=== PATIENT | male | born 1960 | race Caucasian/White ===

== ENCOUNTER 2017-03-12 12:20 | Emergency (ER) | payer BC ==
[~2017-03-12] VITALS: Ht 182.9 cm; Wt 100.0 kg
[2017-03-12 12:33] VITALS: TEMP 36.9; Ht 182.9 cm; Wt 100.0 kg
[2017-03-12] MEDS ORDERED: SODIUM CHLORIDE 0.9% 1000ML 1,000 ML IV STA (12:57)
[2017-03-12] MEDS ORDERED: FAMOTIDINE 20MG/102 ML D5W IV STA (12:57)
[2017-03-12] MEDS ORDERED: AMLO-114 PO (12:58)
[2017-03-12] MEDS ORDERED: ZNTT/150 PO (12:59)
[2017-03-12] MEDS ORDERED: BISM262S7 PO (13:00)
[2017-03-12 13:22] LABS: BASO % 0.3 %; BASO ABS # 0.03 K/uL (0-0.2); COMPLETE YES; EOS % 0.3 %; HEMATOCRIT 45.4 % (42-52); IG% 0.2 %; LYMPH % 18.2 %; LYMPH ABS # 1.68 K/uL (1.2-3.4); MEAN CELL VOLUME 85.7 fL (80-100); MEAN CORPUSCULAR HEMOGLOBIN 29.1 pg (25-34); MEAN CORPUSCULAR HGB CONC 33.9 g/dl (32-36); MONO % 8.5 %; NEUT % 72.5 %; PLATELET COUNT 271 K/uL (130-400); WHITE BLOOD COUNT 9.25 K/uL (4.8-10.8)
[2017-03-12 13:26] LABS: URINE APPEARANCE CLEAR (CLEAR); URINE BILIRUBIN NEG (NEG); URINE COLOR YELLOW; URINE NITRITE NEG (NEG); URINE SPECIFIC GRAVITY 1.005 (1.000-1.030); UROBILINOGEN NEG (NEG)
[2017-03-12 13:28] LABS: MANUAL MICROSCOPIC REQUIRED? NO; REVIEW REQ? NO
[2017-03-12 13:35] LABS: ALT/SGPT 301 U/L (12-78); AST/SGOT 338 U/L (15-37); BLOOD UREA NITROGEN 10 mg/dl (7-18); BUN/CREATININE RATIO 10.7 (10-20); CALCIUM 8.5 mg/dl (8.5-10.1); CARBON DIOXIDE 29 mmol/L (21-32); CHLORIDE 105 mmol/L (98-107); GLUCOSE 102 mg/dl (70-99); POTASSIUM 4.1 mmol/L (3.5-5.1); SODIUM 139 mmol/L (136-145)
[2017-03-12 13:40] LABS: ALB/GLOB RATIO 1.1 (0.9-2); ALKALINE PHOSPHATASE 77 U/L (45-117); CKMB/CK RATIO 1.2 (0-3.0)
--- NOTE | 2017-03-12 14:26 | DIAGNOSTIC IMAGING REPORT ---
ABDOMEN 2VIEW W/PA CHEST RTN CLINICAL HISTORY: 56 years-old Male presenting with EPIGASTRIC PAIN AND BLOATING. TECHNIQUE: PA view of the chest and supine and upright views of the abdomen were obtained. COMPARISON: None. FINDINGS: Cardiomediastinal silhouette normal. Lungs and pleural spaces clear. Moderate stool burden in the right colon. Nonobstructive bowel gas pattern. No evidence of free intraperitoneal gas, pneumatosis, or portal venous gas. No calcifications project over the kidneys or ureters allowing for the presence of stool and gas. Multiple pelvic phleboliths noted. Osseous structures normal. IMPRESSION: 1. No acute cardiopulmonary disease. No radiographic evidence of acute intra-abdominal pathology. Electronically signed by: Kenny Schultz M.D. 03/12/2017 2:25 PM Dictated Date/Time: 03/12/2017 2:22 PM
[2017-03-12] MEDS ORDERED: MoRPHine SULFATE 4 MG/ML 1 ML CARP\\VIAL IV STA (14:35)
[2017-03-12] MEDS ORDERED: ONDANSETRON INJ 2 MG/ML 2 ML VIAL IV STA (14:35)
--- NOTE | 2017-03-12 15:48 | DIAGNOSTIC IMAGING REPORT ---
GALLBLADDER-ABD LIMITED CLINICAL HISTORY: 56 years-old Male presenting with UPPER ABD PAIN . TECHNIQUE: Real-time grayscale and limited color Doppler ultrasound imaging of the abdomen limited to the right upper quadrant was performed. COMPARISON: None. FINDINGS: Pancreas: Mildly heterogeneous pancreatic parenchyma. Liver: Normal echogenicity and echotexture. No sonographic evidence of hepatic mass. Main portal vein patent with normal directional flow. Biliary: No intrahepatic biliary ductal dilatation. Common bile duct measures up to 8-10 mm in diameter. Gallbladder: Gallstones fill the gallbladder. This largely obscures the gallbladder lumen, limiting evaluation. No convincing evidence of wall thickening or pericholecystic fluid or inflammatory change. The gallbladder is nondistended. Equivocal sonographic Christopher sign. Right kidney: Anechoic lesion at the upper pole of the right kidney measuring 1.9 cm consistent with simple cyst. No hydronephrosis. Ascites: None. IMPRESSION: 1. Cholelithiasis with mild extrahepatic biliary ductal dilatation. No convincing evidence of cholecystitis. If there is continuing clinical concern for cholecystitis, nuclear medicine hepatobiliary scan could be obtained. 2. Mildly heterogeneous pancreatic parenchyma. Correlate with lipase to exclude pancreatitis. 3. 4. 5. Electronically signed by: Kenny Schultz M.D. 6. 03/12/2017 3:47 PM 7. 8. Dictated Date/Time: 03/12/2017 3:42 PM
--- NOTE | 2017-03-12 16:13 | EMERGENCY ROOM VISIT NOTE ---
History First contact with patient: 12:43 Chief Complaint: ABDOMINAL PAIN Stated Complaint: UPSET STOMACH/ACID? Nursing Triage Summary: Pt c/o bilateral upper abdominal pain that has been constant for a couple hours. States stomach feels irritated "like raw gut". Denies n/v/d. States he "feels full". Similar episode yesterday, but it went away. Went to urgent care first. "I feel like I need to burp". Ranitidine taken. Pepto Bismal taken. Drank water and ate toast. History of Present Illness Patient is a 56-year-old white male who presents to emergency department complaining by his for evaluation of upper abdominal discomfort. He states that his symptoms started last evening around 9:00. He admits that he ate poorly yesterday, had a lot of coffee, and spacey/septic foods including pizza, hot peppers and beer. He thought that he was experiencing some indigestion last night. He states that he had some bilateral upper abdominal discomfort, bloating and indigestion. It lasted for about 20 minutes then went away. He woke up with some heartburn symptoms overnight, and drink some water which helped. This morning, prior to eating, the upper abdominal discomfort returned. He states he had several waves of the discomfort. He tried taking Zantac and Pepto-Bismol. He ate plain toast. At the present time his symptoms are improving. He states that it feels like the "lining of his stomach is irritated." He denies feeling nauseous, has not vomited, reports a normal bowel movement about 2 hours ago. There has been no melena or hematochezia. He has had symptoms similar to this in the past, which have been treated with prescription antacids. He has had an EGD in the past. He feels a little bit bloated and feels like he needs to burp. He denies a sharp stabbing pain. He rates his discomfort a 4/10 presently. They went to an urgent care center first and were directed to the emergency department. He denies any upper chest pain, palpitations or shortness of breath. No radiation of the pain through to his back. Review of Systems Review of systems as per HPI. All other systems reviewed were negative. 10 systems reviewed. Past Medical/Surgical History Medical Problems: (1) Hypertension (2) Prostate cancer Surgical Problems: (1) History of prostatectomy The patient has no old records at our facility for review. Supple mental sheet was filled out by the patient's , and was reviewed. Social History Smoking Status: Never Smoker Alcohol Use: occasionally Housing Status: lives with significant other Occupation Status: employed Current/Historical Medications Scheduled Amlodipine (Norvasc), 10 MG PO DAILY Ranitidine (Zantac), 300 MG PO DAILY Scheduled PRN Bismuth Subsalicylate (Pepto-Bismol), 15 ML PO BID PRN for Diarrhea Hydrocodone/Acetaminophen 5MG/325MG ([place] 5MG/325MG), 1-2 TABLETS PO Q4 PRN for Pain Ondasetron Odt (Zofran Odt), 4 MG SL Q6H PRN for Nausea or Vomiting Allergies Uncoded Allergies: YELLOW DYE #5 (Allergy, Intermediate, hives, 03/12/17) Physical Exam Vital Signs Date Time Temp Pulse Resp B/P (MAP) Pulse Ox O2 Delivery O2 Flow Rate FiO2 03/12/17 16:30 80 16 140/97 96 03/12/17 14:15 72 17 140/97 98 Room Air 03/12/17 13:38 71 16 167/111 98 Room Air 03/12/17 12:33 36.9 71 18 169/109 98 Room Air Physical Exam CONSTITUTIONAL: Patient is a well-appearing 56-year-old white male who is awake and alert and in no acute distress. EYES: Pupils equal, round, reactive to light and accommodation. EOMs intact without nystagmus. Sclera are anicteric. ENT: Tympanic membranes intact, with normal landmarks. External canals are clear. Oral and nasopharynx are clear. Mucous membranes are moist, no lesions , tongue and gums appear normal. CARDIOVASCULAR: Regular rate and rhythm, with normal S1 and S2, no murmur or gallop or rub is heard. No carotid bruits auscultated. No JVD. Peripheral pulses easily palpable. RESPIRATORY: Breath sounds equal and clear to auscultation without wheezes, rales, or rhonchi heard. Full and equal chest expansion without accessory muscle use or retractions. ABDOMEN: Bowel sounds are present. Abdomen is soft, nondistended, nontender to percussion throughout. Mild upper abdominal tenderness. No guarding, rebound or rigidity. No pulsatile masses. No organomegaly appreciated. Negative Christopher' s sign. INTEGUMENTARY: No lesions or rash, normal skin turgor. LYMPH: No lymphadenopathy. Medical Decision & Procedures ER Provider Diagnostic Interpretation: ABDOMEN 2VIEW W/PA CHEST RTN CLINICAL HISTORY: 56 years-old Male presenting with EPIGASTRIC PAIN AND BLOATING. TECHNIQUE: PA view of the chest and supine and upright views of the abdomen were obtained. COMPARISON: None. FINDINGS: Cardiomediastinal silhouette normal. Lungs and pleural spaces clear. Moderate stool burden in the right colon. Nonobstructive bowel gas pattern. No evidence of free intraperitoneal gas, pneumatosis, or portal venous gas. No calcifications project over the kidneys or ureters allowing for the presence of stool and gas. Multiple pelvic phleboliths noted. Osseous structures normal. IMPRESSION: 1. No acute cardiopulmonary disease. No radiographic evidence of acute intra-abdominal pathology. GALLBLADDER-ABD LIMITED CLINICAL HISTORY: 56 years-old Male presenting with UPPER ABD PAIN . TECHNIQUE: Real-time grayscale and limited color Doppler ultrasound imaging of the abdomen limited to the right upper quadrant was performed. COMPARISON: None. FINDINGS: Pancreas: Mildly heterogeneous pancreatic parenchyma. Liver: Normal echogenicity and echotexture. No sonographic evidence of hepatic mass. Main portal vein patent with normal directional flow. Biliary: No intrahepatic biliary ductal dilatation. Common bile duct measures up to 8-10 mm in diameter. Gallbladder: Gallstones fill the gallbladder. This largely obscures the gallbladder lumen, limiting evaluation. No convincing evidence of wall thickening or pericholecystic fluid or inflammatory change. The gallbladder is nondistended. Equivocal sonographic Christopher sign. Right kidney: Anechoic lesion at the upper pole of the right kidney measuring 1.9 cm consistent with simple cyst. No hydronephrosis. Ascites: None. IMPRESSION: 1. Cholelithiasis with mild extrahepatic biliary ductal dilatation. No convincing evidence of cholecystitis. If there is continuing clinical concern for cholecystitis, nuclear medicine hepatobiliary scan could be obtained. 2. Mildly heterogeneous pancreatic parenchyma. Correlate with lipase to exclude pancreatitis. Laboratory Results 03/12/17 13:07 Red Blood Count 5.30, Mean Corpuscular Volume 85.7, Mean Corpuscular Hemoglobin 29.1, Mean Corpuscular Hemoglobin Concent 33.9, Mean Platelet Volume 11.0, Neutrophils (%) (Auto) 72.5, Lymphocytes (%) (Auto) 18.2, Monocytes (%) (Auto) 8.5, Eosinophils (%) (Auto) 0.3, Basophils (%) (Auto) 0.3, Neutrophils # (Auto) 6.70, Lymphocytes # (Auto) 1.68, Monocytes # (Auto) 0.79, Eosinophils # (Auto) 0.03, Basophils # (Auto) 0.03 03/12/17 13:07 Test 03/12/17 13:07 03/12/17 13:10 White Blood Count 9.25 K/uL (4.8-10.8) Red Blood Count 5.30 M/uL (4.7-6.1) Hemoglobin 15.4 g/dL (14.0-18.0) Hematocrit 45.4 % (42-52) Mean Corpuscular Volume 85.7 fL (80-100) Mean Corpuscular Hemoglobin 29.1 pg (25-34) Mean Corpuscular Hemoglobin Concent 33.9 g/dl (32-36) Platelet Count 271 K/uL (130-400) Mean Platelet Volume 11.0 fL (7.4-10.4) Neutrophils (%) (Auto) 72.5 % Lymphocytes (%) (Auto) 18.2 % Monocytes (%) (Auto) 8.5 % Eosinophils (%) (Auto) 0.3 % Basophils (%) (Auto) 0.3 % Neutrophils # (Auto) 6.70 K/uL (1.4-6.5) Lymphocytes # (Auto) 1.68 K/uL (1.2-3.4) Monocytes # (Auto) 0.79 K/uL (0.11-0.59) Eosinophils # (Auto) 0.03 K/uL (0-0.5) Basophils # (Auto) 0.03 K/uL (0-0.2) RDW Standard Deviation 41.0 fL (36.4-46.3) RDW Coefficient of Variation 13.0 % (11.5-14.5) Immature Granulocyte % (Auto) 0.2 % Immature Granulocyte # (Auto) 0.02 K/uL (0.00-0.02) Anion Gap 5.0 mmol/L (3-11) Est Creatinine Clear Calc Drug Dose 113.6 ml/min Estimated GFR () 111.0 Estimated GFR (Non- 95.8 BUN/Creatinine Ratio 10.7 (10-20) Calcium Level 8.5 mg/dl (8.5-10.1) Total Bilirubin 1.1 mg/dl (0.2-1) Aspartate Amino Transf (AST/SGOT) 338 U/L (15-37) Alanine Aminotransferase (ALT/SGPT) 301 U/L (12-78) Alkaline Phosphatase 77 U/L (45-117) Total Creatine Kinase 131 U/L (39-308) Creatine Kinase MB 1.6 ng/ml (0.5-3.6) Creatine Kinase MB Ratio 1.2 (0-3.0) Troponin I < 0.015 ng/ml (0-0.045) Total Protein 7.5 gm/dl (6.4-8.2) Albumin 3.9 gm/dl (3.4-5.0) Globulin 3.6 gm/dl (2.5-4.0) Albumin/Globulin Ratio 1.1 (0.9-2) Lipase 120 U/L (73-393) Urine Color YELLOW Urine Appearance CLEAR (CLEAR) Urine pH 8.0 (4.5-7.5) Urine Specific [place] 1.005 (1.000-1.030) Urine Protein NEG (NEG) Urine Glucose (UA) NEG (NEG) Urine Ketones NEG (NEG) Urine Occult Blood NEG (NEG) Urine Nitrite NEG (NEG) Urine Bilirubin NEG (NEG) Urine Urobilinogen NEG (NEG) Urine Leukocyte Esterase NEG (NEG) Medications Administered Medications (Trade) Dose Ordered Sig/Khushi Route Start Time Stop Time Status Last Admin Dose Admin Sodium Chloride 1,000 ml @ 250 mls/hr Q4H STAT IV 03/12/17 12:57 03/12/17 16:56 DC 03/12/17 12:57 250 MLS/HR Famotidine (Pepcid 20mg/100 ml) 20 mg ONE STAT IV 03/12/17 12:57 03/12/17 12:59 DC 03/12/17 13:08 20 MG Morphine Sulfate (MoRPHine SULFATE INJ) 4 mg NOW STAT IV 03/12/17 14:35 03/12/17 14:36 DC 03/12/17 14:51 4 MG Ondansetron HCl (Zofran Inj) 4 mg NOW STAT IV 03/12/17 14:35 03/12/17 14:36 DC 03/12/17 14:50 4 MG ECG Indication: abdominal pain Rate (beats per minute): 68 Rhythm: normal sinus Findings: no acute ischemic change, no ectopy Comparison ECG Date: no prior available ED Course The patient was seen and evaluated as above. He has no old records at this facility for review. IV lock was initiated and he was hydrated with normal saline solution. He was initially medicated with Pepcid 20 mg IV. EKG was performed and was as noted above. Laboratory studies were collected including CBC with differential, CMP, lipase, urinalysis and cardiac enzymes. Acute abdominal series was obtained and was unremarkable. Laboratory studies noted a normal white count of 9200. H&H normal. Electrolytes are within normal limits. Renal function is not elevated. Slight elevation of his total bilirubin, he has slight elevation of his AST and ALT, but normal alkaline phosphatase. Lipase is normal and not indicative of acute pancreatitis. Urinalysis was clear. The patient requested something additional for pain, and was given morphine 4 mg and Zofran 4 mg. Gallbladder ultrasound noted cholelithiasis. There is no convincing evidence for cholecystitis. Common bile duct measured 8-10 mm, there is no intrahepatic biliary ductal dilatation. Pancreas was mildly heterogeneous, clinical correlation was advised. All laboratory and diagnostic imaging studies were reviewed with attending physician, and discussed with the patient at length. I do suspect that his symptoms are related to the cholelithiasis and may be indicative of biliary colic. Labs, nor ultrasound or physical exam are consistent with acute cholecystitis at this time. Again, he does have just slight elevation of his AST and ALT, I suspect that this is more related to recent alcohol consumption, and not related to obstructive pathology. Patient had near resolution of his pain, rating his discomfort a 1/10 at discharge. It was discussed with the patient that he would likely need cholecystectomy, but again findings did not appear to indicate acute cholecystitis and given that the patient is pain-free, he was like to go home. He splits time between the [place] area and here in [place], and likely will return to [place] where he is established with physicians to proceed with surgical intervention. He was given contact information for general surgery locally, and was also given a copy of all of his laboratory studies and diagnostic imaging from today to take with him for follow-up. The patient was well educated on the worrisome signs or symptoms for which he should return to the emergency department, and was made aware that his situation could turn into a more urgent surgical scenario at any time. Should he develop vomiting or fevers or increasing pain, he should seek immediate medical attention and he expressed understanding of this. The patient was discharged to home with his in good condition. Differential diagnoses entertained included GERD, gastritis, esophagitis, peptic ulcer disease, acute cholecystitis, biliary colic, ascending cholangitis , choledocholithiasis, bowel obstruction, perforation, mass or malignancy, ACS, acute MO, aortic dissection, among others. Medication reconciliation: I attest that I have personally reviewed the patient' s current medication list. Blood pressure screening: Patient was found to have a slightly elevated blood pressure likely due to circumstances, in addition to the patient not taking his antihypertensive medication this morning. Blood pressure did improve with analgesia. He is followed for hypertension. Patient was reviewed in the [facility] Prescription Drug Monitoring Program, and there were no red flags noted. Medical Decision See ED Course. Impression Primary Impression: Cholelithiasis Departure Information Prescriptions Ondasetron Odt (ZOFRAN ODT) 4 Mg Tab 4 MG SL Q6H Y for Nausea or Vomiting, #20 TAB Prov: Elidia Richter PA 03/12/17 Hydrocodone/Acetaminophen 5MG/325MG ([place] 5MG/325MG) Tab 1-2 TABLETS PO Q4 Y for Pain, #10 TAB For Initial Treatment Prov: Elidia Richter PA 03/12/17 Referrals No Doctor, Assigned (PCP) Keenan Haywood D.O. Patient Instructions My [facility] Additional Instructions DO NOT drive, drink alcohol, operate machinery, or perform dangerous activities today. You were given medications in the ER that can affect your ability to safely function or operate a vehicle. Hydrocodone/Acetaminophen ([place]) 5/325 mg: Take 1-2 pills every four hours for breakthrough pain. Avoid alcohol, operating machinery or dangerous equipment, working on ladders or roofs, DRIVING, or situations where being under the influence may be dangerous. It is recommended to use an [id number] stool softener such as Colace, 100mg twice daily while taking this medication to avoid constipation. . Zofran(odansetron) tablets 4mg: Take one and allow it to dissolve in your mouth every four hours as needed for nausea or vomiting. Rest and drink plenty of fluids as tolerated. Slow sips of water or sports drinks are recommended instead of large amounts all at once. Continue current medications. Once your stomach is settled start with a clear liquid diet (jello, soup broth, etc.) and then advance as tolerated. You should avoid full, heavy meals for about 24 hrs from the time your symptoms resolved. Avoid greasy/fatty foods. Return to the ER immediately for worsening or persistent abdominal pain, vomiting, fevers, chest pains, difficulty breathing, black or bloody stools, worsening of your condition, or as needed. Follow up with general surgery for further care and management. Problem Qualifiers Primary Impression: Cholelithiasis Cholelithiasis location: gallbladder Cholecystitis presence: without cholecystitis Biliary obstruction: without biliary obstruction Qualified Codes: K80.20 - Calculus of gallbladder without cholecystitis without obstruction
[2017-03-12] MEDS ORDERED: ONDA4TAB10 SL (16:14)
[2017-03-12] MEDS ORDERED: HYDR-5688 PO (16:14)
[2017-03-12 16:30] VITALS: BP 140/97; PULSE 80; O2SAT 96
== END 2017-03-12 16:30 | disposition home or self-care (01) ==
LOC: C.EDB 12:22 → C.EDA 16:30
DX: K80.20 Calculus of gallbladder without cholecystitis without obstruction (principal); I10 Essential (primary) hypertension; Z85.46 Personal history of malignant neoplasm of prostate; Z79.899 Other long term (current) drug therapy